=== PATIENT | male | born 1965 | race Caucasian/White ===

== ENCOUNTER 2017-03-31 07:02 | Observation (INO) | payer OTHER ==
[2017-03-31 07:16] VITALS: BMI 31.6
[2017-03-31 08:39] LABS: BASOPHIL 0.2 % (0-2.0); EOSINOPHIL 0.2 % (0-4.5); MCHC 33.8 g/dl (32.0-35.9); MEAN CELL VOLUME 91.8 fl (80-96); MEAN PLT VOLUME 8.1 fl (7.5-11.1); NEUTROPHILS 81.2 % (42.8-82.8); PLATELET COUNT 183 K/MM3 (134-434); RDW 13.9 % (11.9-15.9); WHITE BLOOD COUNT 13.6 K/mm3 (4.0-10.0)
[2017-03-31 08:40] LABS: URINE APPEARANCE SLCLOUDY; URINE BLOOD NEGATIVE (NEGATIVE); URINE COLOR AMBER; URINE GLUCOSE (UA) NEGATIVE (NEGATIVE); URINE KETONE TRACE (NEGATIVE); URINE NITRITE NEGATIVE (NEGATIVE); URINE UROBILINOGEN 4.0 E.U/dl mg/dL (0.2-1.0)
[2017-03-31 08:53] LABS: URINE PROTEIN 1+ (NEGATIVE)
[2017-03-31 08:59] LABS: ALBUMIN 3.8 g/dl (3.4-5.0); ALK PHOS 92 U/L (45-117); ANION GAP 8 (8-16); BILIRUBIN,TOTAL 0.7 mg/dL (0.2-1.0); CALCIUM 8.4 mg/dL (8.5-10.1); CO2 23 mmol/L (21-32); GLUCOSE,RANDOM 146 mg/dL (74-106); SGOT/AST 18 U/L (15-37); SGPT/ALT 36 U/L (12-78); TOT PROT 6.9 g/dl (6.4-8.2)
[2017-03-31 09:02] LABS: URINE MUCUS MANY; URINE RBC 7 /hpf (0-3); URINE WBC 169 /hpf (3-5)
--- NOTE | 2017-03-31 09:11 | PDOC ---
History of Present Illness - General History Source: Patient Exam Limitations: No Limitations - History of Present Illness Initial Comments: 03/31/17 10:00 The patient is a 52 year old male, with no significant past medical history who presents to the emergency department with hematuria and fever. Patient reports recent prostate biopsy last week and has been experiencing fevers and chills since then. Patient has been taking Flagyl and Bactrim following the procedure with no relief of his symptoms. Patient additionally endorses urinary output with frequency and urgency. Patient denies chest pain, headache or dizziness. Patient denies fever, chills, abdominal pain, nausea, vomit, diarrhea or constipation. Patient denies dysuria. Patient denies sick contacts or recent travel. Allergies:NKA Past surgical history: Prostate biopsy Social history: Current someday cigarette smoker PCP: Dr. Danyel Pizarro URO: Rah Pizarro <Sierra Hewitt - Last Filed: 03/31/17 10:02> <Ahsan Delarosa - Last Filed: 03/31/17 16:53> - General Chief Complaint: Urinary Problem Stated Complaint: FEVER, PAIN Time Seen by Provider: 03/31/17 07:38 Past History <Sierra Hewitt - Last Filed: 03/31/17 10:02> - Past Medical History COPD: No Other medical history: NONE - Suicide/Smoking/Psychosocial Hx Smoking History: Current some day smoker Number of Cigarettes Smoked Daily: 3 Information on smoking cessation initiated: No Hx Alcohol Use: Yes (SOCIAL) Drug/Substance Use Hx: No <Ahsan Delarosa - Last Filed: 03/31/17 16:53> - Past Medical History Allergies/Adverse Reactions: Allergies Allergy/AdvReac Type Severity Reaction Status Date / Time No Known Allergies Allergy Verified 03/31/17 07:14 Home Medications: Ambulatory Orders Metronidazole [Flagyl -] 500 mg PO TID 03/31/17 Tamsulosin HCl [Flomax] 0.4 mg PO DAILY 03/31/17 Review of Systems - Review of Systems Able to Perform ROS?: Yes Comments:: 03/31/17 10:00 ROS: A complete review of 10 out of 10 review of systems is taken and is negative apart from what is previously mentioned below and in the HPI. <Sierra Hewitt - Last Filed: 03/31/17 10:02> *Physical Exam - Vital Signs Last Vital Signs Temp Pulse Resp BP Pulse Ox 99.8 F H 96 H 20 118/62 98 03/31/17 08:32 03/31/17 07:10 03/31/17 07:10 03/31/17 07:10 03/31/17 07:10 - Physical Exam Comments: 03/31/17 10:00 Vitals: Triage Vital signs reviewed General Appearance: no acute distress, well nourished well developed, Head: Atraumatic, normocephalic Neck: Supple;No Nuchal rigidity Chest Wall: Nontender Cardiac: Regular rate and rhythm, no murmurs, no rubs, no gallops, Lungs: Clear to auscultation bilateral, good air movement bilaterally, Abdomen: Soft, nondistended, normal bowel sounds, nontender to palpation Extremities: Full range of motion to all extremities, no cyanosis, clubbing, or edema Skin: Warm and dry, no rashes or lesions, no petechiae <Sierra Hewitt - Last Filed: 03/31/17 10:02> - Vital Signs Last Vital Signs Temp Pulse Resp BP Pulse Ox 99.8 F H 96 H 20 118/62 98 03/31/17 08:32 03/31/17 07:10 03/31/17 07:10 03/31/17 07:10 03/31/17 07:10 <Ahsan Delarosa - Last Filed: 03/31/17 16:53> ED Treatment Course - LABORATORY CBC & Chemistry Diagram: 03/31/17 07:50 03/31/17 07:50 - ADDITIONAL ORDERS Additional order review: Laboratory Results 03/31/17 03/31/17 08:18 07:50 Sodium 137 Potassium 3.9 Chloride 106 Carbon Dioxide 23 Anion Gap 8 BUN 11 Creatinine 1.0 Creat Clearance w eGFR > 60 Random Glucose 146 H Calcium 8.4 L Total Bilirubin 0.7 AST 18 ALT 36 Alkaline Phosphatase 92 Total Protein 6.9 Albumin 3.8 Urine Color Rachael Urine Appearance Slcloudy Urine pH 5.0 Ur Specific [place] 1.040 H Urine Protein 1+ H Urine Glucose (UA) Negative Urine Ketones Trace H Urine Blood Negative Urine Nitrite Negative Urine Bilirubin 2.0 Urine Urobilinogen 4.0 e.u/dl Urine WBC (Auto) 169 Urine RBC (Auto) 7 Ur Epithelial Cells Rare Urine Mucus Many 03/31/17 07:50 RBC 4.76 MCV 91.8 MCHC 33.8 RDW 13.9 MPV 8.1 Neutrophils % 81.2 Lymphocytes % 8.3 Monocytes % 10.1 Eosinophils % 0.2 Basophils % 0.2 <Sierra Hewitt - Last Filed: 03/31/17 10:02> - LABORATORY CBC & Chemistry Diagram: 03/31/17 07:50 03/31/17 07:50 - ADDITIONAL ORDERS Additional order review: Laboratory Results 03/31/17 03/31/17 08:18 07:50 Sodium 137 Potassium 3.9 Chloride 106 Carbon Dioxide 23 Anion Gap 8 BUN 11 Creatinine 1.0 Creat Clearance w eGFR > 60 Random Glucose 146 H Calcium 8.4 L Total Bilirubin 0.7 AST 18 ALT 36 Alkaline Phosphatase 92 Total Protein 6.9 Albumin 3.8 Urine Color Rachael Urine Appearance Slcloudy Urine pH 5.0 Ur Specific [place] 1.040 H Urine Protein 1+ H Urine Glucose (UA) Negative Urine Ketones Trace H Urine Blood Negative Urine Nitrite Negative Urine Bilirubin 2.0 Urine Urobilinogen 4.0 e.u/dl Urine WBC (Auto) 169 Urine RBC (Auto) 7 Ur Epithelial Cells Rare Urine Mucus Many 03/31/17 07:50 RBC 4.76 MCV 91.8 MCHC 33.8 RDW 13.9 MPV 8.1 Neutrophils % 81.2 Lymphocytes % 8.3 Monocytes % 10.1 Eosinophils % 0.2 Basophils % 0.2 <Ahsan Delarosa - Last Filed: 03/31/17 16:53> Medical Decision Making - Medical Decision Making 03/31/17 10:01 Danyel Welsh paged via office number Discussed patient's case. Dr. Rah Pizarro paged via phone answering service. Awaiting call back. <Sierra Hewitt - Last Filed: 03/31/17 10:02> - Medical Decision Making 03/31/17 16:31Fever chills, dysuria for one week status post prostate biopsy. Urinalysis grossly positive. Patient is now status post failed outpatient antibiotics metronidazole and Bactrim We'll treat with IV Zosyn cultures ordered we'll observe on medicine service for further management. Urology consult. <Ahsan Delarosa - Last Filed: 03/31/17 16:53> *DC/Admit/Observation/Transfer - Attestations Scribe Attestion: 03/31/17 10:01 Documentation prepared by Sierra Hewitt, acting as medical office assistant instructor for Ahsan Delarosa MD, MD/DO. <Sierra Hewitt - Last Filed: 03/31/17 10:02> - Discharge Dispostion Admit: Yes <Ahsan Delarosa - Last Filed: 03/31/17 16:53> Diagnosis at time of Disposition: UTI (urinary tract infection) Qualifiers: Urinary tract infection type: site unspecified Hematuria presence: without hematuria Qualified Code(s): N39.0 - Urinary tract infection, site not specified
[2017-03-31] MEDS ORDERED: PIPERACILLIN/TAZOB 3.375 GM/50 ML PRE-DOCKED IVPB ONE (09:52)
[2017-03-31] MEDS ORDERED: ACETAMINOPHEN 500 MG TABLET (FP) PO ONE (09:52)
[2017-03-31] MEDS ORDERED: SODIUM CHLORIDE 0.9% 1000 ML INFUS.BAG IV ONE (09:59)
[2017-03-31] MEDS ORDERED: PIPERACILLIN/TAZOB 3.375 GM 3.375 GM/50 ML BAG IVPB ONE (10:03)
[2017-03-31] MEDS ORDERED: ACETAMINOPHEN 325 MG TABLET (FP) ONE (10:04)
--- NOTE | 2017-03-31 12:01 | HP ---
Admitting History and Physical - Admission Chief Complaint: fever hematuriax 1 wk History of Present Illness: had prostate bx x 1 wk agoi History Source: Patient Limitations to Obtaining History: No Limitations - Smoking History Smoking history: Current some day smoker Aproximately how many cigarettes per day: 3 - Alcohol/Substance Use Hx Alcohol Use: Yes (SOCIAL) Home Medications - Allergies Allergies/Adverse Reactions: Allergies Allergy/AdvReac Type Severity Reaction Status Date / Time No Known Allergies Allergy Verified 03/31/17 07:14 - Home Medications Home Medications: Ambulatory Orders Metronidazole [Flagyl -] 500 mg PO TID 03/31/17 Tamsulosin HCl [Flomax] 0.4 mg PO DAILY 03/31/17 Family Disease History - Family Disease History Family History: Unremarkable Review of Systems - Review of Systems Constitutional: reports: Fever Eyes: reports: No Symptoms HENT: reports: No Symptoms Neck: reports: No Symptoms Cardiovascular: reports: No Symptoms Respiratory: reports: No Symptoms Gastrointestinal: reports: No Symptoms Genitourinary: reports: Dysuria Breasts: reports: No Symptoms Reported Musculoskeletal: reports: No Symptoms Integumentary: reports: No Symptoms Neurological: reports: No Symptoms Endocrine: reports: No Symptoms, Unexplained Weight Gain Psychiatric: reports: No Symptoms Physical Examination Vital Signs: Vital Signs Temperature 99.8 F H 03/31/17 08:32 Pulse Rate 96 H 03/31/17 07:10 Respiratory Rate 20 03/31/17 07:10 Blood Pressure 118/62 03/31/17 07:10 O2 Sat by Pulse Oximetry (%) 98 03/31/17 07:10 Constitutional: Yes: Well Nourished, Other (chills) Eyes: Yes: WNL HENT: Yes: WNL Cardiovascular: Yes: WNL Respiratory: Yes: WNL Gastrointestinal: Yes: WNL ...Rectal Exam: Yes: Deferred Renal/: Yes: WNL Breast(s): Yes: WNL Musculoskeletal: Yes: WNL Extremities: Yes: WNL Edema: No Peripheral Pulses WNL: Yes Integumentary: Yes: WNL Neurological: Yes: WNL ...Motor Strength: WNL Psychiatric: Yes: WNL Labs: CBC, BMP 03/31/17 07:50 03/31/17 07:50 Assessment/Plan iv antbx gu id to see pt fluids
[2017-03-31] MEDS: SODIUM CHLORIDE 1,000 ML IV SCH (13:46)
[2017-03-31] MEDS ORDERED: ERTAPENEM SODIUM 1 GM in SODIUM CHLORIDE 50 ML IVPB ONE (14:45)
[2017-03-31] MEDS: ACETAMINOPHEN 325 MG TABLET (FP) PO PRN ×2 (15:11→21:03)
[2017-03-31 15:48] LABS: URINE LEUK ESTERASE TRACE (NEGATIVE)
[2017-03-31] MEDS ORDERED: POLYETHYLENE GLYCOL 3350 119 GM BTL PO PRN (18:41)
[2017-03-31] MEDS ORDERED: POLYETHYLENE GLYCOL 3350 119 GM BTL PO SCH (18:45)
[2017-04-01] MEDS: SODIUM CHLORIDE 1,000 ML IV SCH ×2 (00:41→15:21)
[2017-04-01] MEDS: ACETAMINOPHEN 325 MG TABLET (FP) PO PRN (03:49)
[2017-04-01] MEDS ORDERED: PIPERACIL/TAZOB 3.375 GM 3.375 GM/50 ML PREMIX IVPB SCH (08:30)
[2017-04-01] MEDS ORDERED: PIPERACILLIN/TAZOB 3.375 GM 3.375 GM in DEXTROSE 5%-WATER - 50 ML IVPB ONE (08:30)
[2017-04-01] MEDS ORDERED: PT OWN MED DRAWER 7, Y5N ONE (09:20)
[2017-04-01] MEDS ORDERED: SODIUM PHOSPHATE/NA BIPHOS 133 ML ENEMA RC ONE (09:45)
[2017-04-01 09:54] LABS: BASOPHIL 0.3 % (0-2.0); EOSINOPHIL 1.5 % (0-4.5); MCH 31.2 pg (25.7-33.7); MCHC 33.6 g/dl (32.0-35.9); MEAN CELL VOLUME 92.7 fl (80-96); MEAN PLT VOLUME 8.3 fl (7.5-11.1); NEUTROPHILS 67.1 % (42.8-82.8); PLATELET COUNT 186 K/MM3 (134-434); RDW 13.9 % (11.9-15.9)
--- NOTE | 2017-04-01 09:59 | PN ---
Progress Note (short form) - Note Progress Note: ID Full note dictated Post prostate biopsy almost 2 weeks ago says he was taking antibiotic at home for urinary complaints dysuria Febrile on admission Selected Entries 03/31/17 04/01/17 21:00 07:49 Temperature 101.7 F H 100.8 F H Pulse Rate 72 Respiratory 20 Rate Blood Pressure 110/71 Microbiology 03/31/17 08:18 Urine - Urine Clean Catch Urine Culture - Preliminary Lactose Fermenting Neg Bacilli 03/31/17 07:50 Blood - Peripheral Venous Blood Culture - Preliminary NO GROWTH OBTAINED AFTER 24 HOURS, INCUBATION TO CONTINUE FOR 4 DAYS. 03/31/17 07:50 Blood - Peripheral Venous Blood Culture - Preliminary NO GROWTH OBTAINED AFTER 24 HOURS, INCUBATION TO CONTINUE FOR 4 DAYS. Laboratory Tests 03/31/17 03/31/17 07:50 08:18 WBC 13.6 H Hgb 14.8 Hct 43.7 Plt Count 183 Ur Leukocyte Esterase Trace H Urine WBC (Auto) 169 Urine RBC (Auto) 7 Assessment Post prostate biopsy UTI Treat for possible ESBL Plan ERTEPENEM 1 gram pending final culture sensitivities Eddie POLANCO Problem List - Problems (1) Fever Code(s): R50.9 - FEVER, UNSPECIFIED (2) UTI (urinary tract infection) Code(s): N39.0 - URINARY TRACT INFECTION, SITE NOT SPECIFIED Qualifiers: Urinary tract infection type: site unspecified Hematuria presence: without hematuria Qualified Code(s): N39.0 - Urinary tract infection, site not specified
[2017-04-01] MEDS ORDERED: PANTOPRAZOLE 40 MG TABLET (FP) PO SCH (10:00)
[2017-04-01] MEDS ORDERED: ASPIRIN COATED 81 MG TABLET.EC PO SCH (10:00)
[2017-04-01 10:14] LABS: ANION GAP 7 (8-16); CALCIUM 7.6 mg/dL (8.5-10.1); CO2 24 mmol/L (21-32); CREATININE 0.7 mg/dL (0.7-1.3); GLUCOSE,RANDOM 87 mg/dL (74-106)
[2017-04-01] MEDS ORDERED: ERTAPENEM SODIUM 1 GM in SODIUM CHLORIDE 50 ML IVPB SCH (11:00)
--- NOTE | 2017-04-01 11:04 | PN ---
Progress Note, Physician Chief Complaint: Pt feels better. Had b/m today. Ambulating w/o difficulty. No temp Pt requested to go home. - Current Medication List Current Medications: Active Medications Acetaminophen (Tylenol -) 650 mg PO Q4H PRN PRN Reason: FEVER OR PAIN Last Admin: 04/01/17 03:49 Dose: 650 mg Aspirin (Ecotrin -) 81 mg PO DAILY [facility] Last Admin: 04/01/17 10:17 Dose: 81 mg Sodium Chloride (Normal Saline -) 1,000 mls @ 75 mls/hr IV ASDIR [facility] Last Admin: 04/01/17 00:41 Dose: 75 mls/hr Ertapenem 1 gm/ Sodium (Chloride) 50 mls @ 50 mls/hr IVPB DAILY [facility] PRN Reason: Protocol Pantoprazole Sodium (Protonix -) 40 mg PO DAILY [facility] Last Admin: 04/01/17 10:17 Dose: 40 mg Polyethylene Glycol (Miralax (For Daily Use) -) 17 gm PO DAILY [facility] Last Admin: 03/31/17 18:46 Dose: 17 gm - Objective Vital Signs: Vital Signs Temperature 98.1 F 04/01/17 08:00 Pulse Rate 64 04/01/17 08:00 Respiratory Rate 18 04/01/17 08:00 Blood Pressure 110/68 04/01/17 08:00 O2 Sat by Pulse Oximetry (%) 98 04/01/17 00:44 Constitutional: Yes: Well Nourished Eyes: Yes: WNL HENT: Yes: WNL Neck: Yes: WNL Cardiovascular: Yes: WNL Respiratory: Yes: WNL Gastrointestinal: Yes: WNL ...Rectal Exam: Yes: Deferred Genitourinary: Yes: WNL Musculoskeletal: Yes: WNL Extremities: Yes: WNL Edema: No Peripheral Pulses WNL: Yes Integumentary: Yes: WNL Neurological: Yes: WNL ...Motor Strength: WNL Psychiatric: Yes: WNL Labs: CBC, BMP 04/01/17 09:30 04/01/17 09:30 Assessment/Plan Agree w ID change abx. Awaiting cultures. Check CBC in AM. Urine cultures pending. Questionable discharge in AM. On PO abx.
--- NOTE | 2017-04-01 13:38 | PN ---
Progress Note (short form) - Note Progress Note: Pt. is a 52y/o male who is s/p trus and prostate biopsy,he presents with fever, chills and hematuria.Will admit and rx. with iv antibiotics and awaite blood and urine c/s.
--- NOTE | 2017-04-01 19:50 | CONS ---
DATE OF CONSULTATION: DATE OF DICTATION: 04/01/2017 This is a 52-year-old [place] male who states that he underwent a prostate biopsy almost 2 weeks ago. He is admitted now with chief complaint of fever to nearly 102 with chills, hematuria and dysuria. He notes being on an oral antibiotic but did not know the name and has been experiencing urinary complaints now with fever for which he is admitted. I was contacted last night by the nurse regarding a consultation and made a recommendation to give 1 g of ertapenem. Currently, the patient feels better and his major complaint right now is constipation. He does not have any abdominal pain or back pain noted. He is not diabetic. PAST MEDICAL HISTORY: Includes recent prostate biopsy and BPH. MEDICATIONS: Oral antibiotic (?). SOCIAL HISTORY: Nonsmoker. R[place] a [employer] [place] [facility]. Lives with his . No recent travel. FAMILY HISTORY: Reviewed and noncontributory REVIEW OF SYSTEMS: Respiratory: No cough, shortness of breath. Cardiac: No chest pain, palpitations, syncope, murmur. Gastrointestinal: Positive constipation. No nausea, vomiting, diarrhea, weight loss. Genitourinary: As noted in history of present illness; hematuria, dysuria. PHYSICAL EXAMINATION: General: He was an alert male in no acute distress. Vital Signs: T-Max yesterday 101.7, currently 100.8. Pulse 72. Blood pressure 110/71. Respirations 20. Neck: Supple. No adenopathy. Lungs: Clear to percussion and auscultation. Heart: S1, S2, regular rhythm without audible murmur or gallop. Abdomen: Soft, nontender without hepatosplenomegaly. Extremities: Without clubbing, cyanosis or edema. Back: No CVA tenderness. The white count is 13.6, hemoglobin 14.8, platelets 183. BUN 11, creatinine 1.0. Liver enzymes within normal limits. Urinalysis with 169 WBCs, 7 RBCs and trace leukocyte esterase. Two sets of blood cultures thus far no growth. Urine culture with 30,000 colonies lactose-fermenting gram-negative rods, possible Escherichia coli. ASSESSMENT: A 52-year-old male with benign prostatic hypertrophy status post prostate biopsy approximately 2 weeks ago. Has been receiving oral antibiotics and admitted with fever, hematuria and dysuria consistent with a diagnosis of post-prostate biopsy urinary tract infection. Growing gram-negative rods, possibility of a resistant organism, possible ESBL considered. Will continue him on ertapenem pending final cultures with recommendation to follow regarding treatment for home discharge antibiotic options. OSCAR QUISPE M.D. [id number]
--- NOTE | 2017-04-01 21:07 | CONS ---
DATE OF CONSULTATION: DATE OF DICTATION: 04/01/2017 Patient is a 52-year-old male admitted via the emergency room with history of hematuria, fever and chills. The patient has undergone a transrectal ultrasound as well as a transrectal ultrasound-guided biopsy of the prostate earlier this week. He was on preop antibiotics and was also given intraoperative gentamicin and Ancef. He was sent home on Flagyl 500 mg t.i.d. as well as Bactrim DS 1 p.o. b.i.d. for 10 days. The patient states that several hours after the biopsy, he developed dysuria, frequency. Earlier that evening, he developed a slight fever. Later that night, his temperature went up to 101.4. He also had chills and dysuria. He denies any chest pain or palpitations. He denies any nausea, vomiting, diarrhea or constipation. He does have history of prostatism including frequency, terminal dribbling, hesitancy and feelings of incomplete bladder emptying. He does smoke several cigarettes a day. He denies any ethanolism. He denies any allergies. At home, he was on Bactrim, Flagyl and Flomax. In the emergency room, he was found to have a temperature of 98.8, a pulse of 96, blood pressure of 118/62, O2 saturations at 98%. CBC revealed a white count of 13,600 with a hemoglobin of 14.8, hematocrit 43.7, his platelets were 183. BUN 11, creatinine 0.1. His random glucose was 146. The patient's liver enzymes were all within normal limits. His urinalysis revealed negative blood as well as negative nitrites. The patient is admitted to the hospital for possible urosepsis post transrectal biopsy of the prostate. He has failed a course of Flagyl and Bactrim. Therefore, will commence treatment with IV Zosyn after cultures have been obtained. PHYSICAL EXAMINATION: Vital Signs: Reveal a T-max of 100.8, blood pressure 102/72, pulse 81, respirations 18. General: Presently, the patient is in no acute distress. Abdomen: Soft. There is no CVA tenderness. Genitourinary: Genitalia are atraumatic. Testes are normal in size and consistency. No hernias or hydroceles are elicited. Meatus is adequate. No inguinal lymph nodes are palpable. Perineum is atraumatic. Prostate is 2+, firm and nontender. Extremities: Reveal full range of motion with no cyanosis, clubbing or edema. His repeat white count is 11,000. Repeat BUN is 7, creatinine 0.7. His random glucose is 87. IMPRESSION: Post-biopsy sepsis. Will continue with IV antibiotics. Will recommend obtaining culture results and placing patient on p.o. medications. The patient will be seen in the office next week to get the results of his biopsy. Will follow with you. Ricki [id number]
[2017-04-02 07:04] VITALS: TEMP 98.3
[2017-04-02 07:28] LABS: MCH 31.2 pg (25.7-33.7); MCHC 33.6 g/dl (32.0-35.9); MEAN CELL VOLUME 92.8 fl (80-96); MEAN PLT VOLUME 8.1 fl (7.5-11.1); PLATELET COUNT 191 K/MM3 (134-434); RDW 13.6 % (11.9-15.9)
[2017-04-02 07:45] LABS: ANION GAP 7 (8-16); CALCIUM 7.7 mg/dL (8.5-10.1); CO2 25 mmol/L (21-32); GLUCOSE,RANDOM 92 mg/dL (74-106)
[2017-04-02 07:48] LABS: CREATININE 0.8 mg/dL (0.7-1.3)
--- NOTE | 2017-04-02 09:15 | DS ---
Physical Examination Vital Signs: Vital Signs Temperature 98.3 F 04/02/17 06:00 Pulse Rate 74 04/02/17 06:00 Respiratory Rate 18 04/02/17 06:00 Blood Pressure 117/72 04/02/17 06:00 O2 Sat by Pulse Oximetry (%) 96 04/02/17 00:00 Constitutional: Yes: Well Nourished Eyes: Yes: WNL HENT: Yes: WNL Neck: Yes: WNL Cardiovascular: Yes: WNL Respiratory: Yes: WNL Gastrointestinal: Yes: WNL ...Rectal Exam: Yes: WNL Renal/: Yes: WNL Breast(s): Yes: WNL Musculoskeletal: Yes: WNL Extremities: Yes: WNL Edema: No Peripheral Pulses WNL: Yes Integumentary: Yes: WNL Neurological: Yes: WNL ...Motor Strength: WNL Psychiatric: Yes: WNL Labs: CBC, BMP 04/02/17 06:10 04/02/17 06:10 Discharge Summary Reason For Visit: UTI Current Active Problems Fever (Acute) UTI (urinary tract infection) (Acute) Condition: Good - Instructions Diet, Activity, Other Instructions: cont bactrim flagly flomax as is at home appt w me 1200 noon wed Referrals: Danyel Pizarro MD [Primary Care Provider] - Disposition: HOME - Home Medications Comprehensive Discharge Medication List: Ambulatory Orders Metronidazole [Flagyl -] 500 mg PO TID 03/31/17 Tamsulosin HCl [Flomax] 0.4 mg PO DAILY 03/31/17
[2017-04-02 09:37] VITALS: BP 101/62; PULSE 64
[2017-04-02] MEDS ORDERED: ERTAPENEM SODIUM 1 GM in SODIUM CHLORIDE 50 ML IVPB SCH (10:00)
== END 2017-04-02 10:04 | disposition home or self-care (01) ==
LOC: JER 07:02 → JERBED 10:01 → J5S 12:40
PROVIDERS: ADMIT Family Medicine; ATTEND Family Medicine
DX: N39.0 Urinary tract infection, site not specified (principal)
CPT/HCPCS: 36415; 80048; 80053; 81003; 81015; 85025; 85027; 87040; 87086; 87186; 99282-25; G0378

== ENCOUNTER 2021-09-17 11:35 | Emergency (ER) | payer OTHER ==
[2021-09-17 11:39] VITALS: BP 123/74; PULSE 75; TEMP 97.8; BMI 31.6
[2021-09-17] MEDS ORDERED: KETOROLAC TROMETHAMINE 30 MG/1 ML VIAL IM ONE (12:28)
[2021-09-17] MEDS ORDERED: KETOROLAC TROMETHAMINE 30 MG/1 ML VIAL ONE (12:50)
== END 2021-09-17 13:10 | disposition home or self-care (01) ==
LOC: JER 11:35
PROC: 3E0233Z Introduction of Anti-inflammatory into Muscle, Percutaneous Approach (ICD-10-PCS; principal; 2021-09-17)
DX: B34.9 Viral infection, unspecified (principal)
CPT/HCPCS: 0241U-QW; 99284-25

== ENCOUNTER 2023-10-11 15:33 | Emergency (ER) | payer OTHER ==
[2023-10-11 15:43] VITALS: RESP 18; TEMP 98; BMI 33.4
[2023-10-11 16:29] LABS: PH,URINE 5.5 (5.0-8.0); URINE APPEARANCE CLEAR; URINE BILIRUBIN NEGATIVE (NEGATIVE); URINE COLOR YELLOW; URINE GLUCOSE (UA) NEGATIVE (NEGATIVE); URINE KETONE NEGATIVE (NEGATIVE); URINE LEUK ESTERASE NEGATIVE (NEGATIVE); URINE NITRITE NEGATIVE (NEGATIVE); URINE PROTEIN NEGATIVE (NEGATIVE)
[2023-10-11] MEDS: SODIUM CHLORIDE 1,000 ML IV STA (16:32)
[2023-10-11 16:38] LABS: BASO % 0.8 % (0-2.0); EOS % 3.6 % (0-4.5); HEMATOCRIT 47.7 % (35.4-49); HEMOGLOBIN 16.2 GM/dL (11.7-16.9); LYMPH % 30.6 % (8-40); MCH 31.1 pg (25.7-33.7); MEAN CELL VOLUME 91.4 fl (80-96); MEAN PLT VOLUME 8.4 fl (7.5-11.1); MONO % 7.4 % (3.8-10.2); NEUT % 57.6 % (42.8-82.8); PLATELET COUNT 174 10^3/uL (134-434); RBC 5.21 M/mm3 (4.00-5.60); RDW 14.3 % (11.9-15.9)
[2023-10-11 17:01] LABS: POTASSIUM 3.9 mmol/L (3.5-5.1)
[2023-10-11 17:03] LABS: CALCIUM 8.5 mg/dL (8.5-10.1)
[2023-10-11 17:04] LABS: BLOOD UREA NITROGEN 18.2 mg/dL (7-18)
[2023-10-11 17:07] LABS: CREATININE 0.8 mg/dL (0.55-1.3)
[2023-10-11 17:08] LABS: BILIRUBIN,TOTAL 0.5 mg/dL (0.2-1); TOT PROT 7.3 g/dl (6.4-8.2)
[2023-10-11] MEDS ORDERED: ACETAMINOPHEN INJECTION 100 ML IVPB ONE (18:49)
[2023-10-11] MEDS: ACETAMINOPHEN 1000 MG/100 ML BAG IVPB ONE (19:09)
[2023-10-11] MEDS ORDERED: POLYETHYLENE GLYCOL (HEALTHYLAX) 3350 17 GM PACKET ONE (21:22)
[2023-10-11] MEDS: POLYETHYLENE GLYCOL (HEALTHYLAX) 3350 17 GM PACKET PO ONE (21:27)
[2023-10-11 21:36] VITALS: BP 132/70; PULSE 75
== END 2023-10-11 21:35 | disposition home or self-care (01) ==
LOC: JER 15:33
PROC: 3E033NZ Introduction of Analgesics, Hypnotics, Sedatives into Peripheral Vein, Percutaneous Approach (ICD-10-PCS; principal; 2023-10-11)
PROC: 3E0337Z Introduction of Electrolytic and Water Balance Substance into Peripheral Vein, Percutaneous Approach (ICD-10-PCS; 2023-10-11)
DX: R10.31 Right lower quadrant pain (principal); R50.9 Fever, unspecified
CPT/HCPCS: 36415; 74177-TC; 76705-TC; 80053; 81003; 83690; 85025; 87086; 99285-25; J0131; Q9967

== ENCOUNTER 2023-10-12 06:34 | Emergency (ER) | payer OTHER ==
[2023-10-12 06:41] VITALS: BMI 33.3
[2023-10-12] MEDS ORDERED: ACETAMINOPHEN INJECTION 100 ML IVPB ONE (08:04)
[2023-10-12] MEDS: SODIUM CHLORIDE 0.9% 500 ML INFUS.BAG IV ONE (08:27)
[2023-10-12] MEDS: ACETAMINOPHEN 1000 MG/100 ML BAG IVPB ONE (08:27)
[2023-10-12 08:35] LABS: BASO % 0.4 % (0-2.0); EOS % 1.2 % (0-4.5); HEMATOCRIT 49.2 % (35.4-49); LYMPH % 13.1 % (8-40); MCH 31.8 pg (25.7-33.7); MCHC 34.7 g/dl (32.0-35.9); MEAN CELL VOLUME 91.6 fl (80-96); MEAN PLT VOLUME 8.4 fl (7.5-11.1); MONO % 6.1 % (3.8-10.2); NEUT % 79.2 % (42.8-82.8); PLATELET COUNT 181 10^3/uL (134-434); RBC 5.37 M/mm3 (4.00-5.60); RDW 14.2 % (11.9-15.9); WHITE BLOOD COUNT 8.8 K/mm3 (4.0-10.0)
[2023-10-12 08:46] LABS: POTASSIUM 3.8 mmol/L (3.5-5.1)
[2023-10-12 08:48] LABS: CALCIUM 9.1 mg/dL (8.5-10.1)
[2023-10-12 08:49] LABS: ALBUMIN 4.6 g/dl (3.4-5.0)
[2023-10-12 08:52] LABS: CREATININE 0.8 mg/dL (0.55-1.3)
[2023-10-12 08:53] LABS: BILIRUBIN,TOTAL 0.9 mg/dL (0.2-1); TOT PROT 8.1 g/dl (6.4-8.2)
[2023-10-12] MEDS ORDERED: MAGNESIUM HYDROX 2400MG/30ML ORAL SUSPENSION 30 ML CUP ONE (11:47)
[2023-10-12] MEDS ORDERED: KETOROLAC TROMETHAMINE 15 MG/ML VIAL ONE (11:47)
[2023-10-12 11:51] VITALS: TEMP 98
[2023-10-12] MEDS: KETOROLAC TROMETHAMINE 15 MG/ML VIAL IVPUSH ONE (12:26)
[2023-10-12] MEDS: MAGNESIUM HYDROX 2400MG/30ML ORAL SUSPENSION 30 ML CUP PO ONE (12:27)
[2023-10-12] MEDS: PEG 3350/NA SULF BICARB CL/KCL 4000 ML SOLN.RECON PO ONE (12:27)
[2023-10-12] MEDS: SODIUM PHOSPHATE/NA BIPHOS 133 ML ENEMA RC ONE (12:27)
[2023-10-12 14:26] VITALS: BP 106/83; PULSE 60; RESP 18
== END 2023-10-12 16:22 | disposition home or self-care (01) ==
LOC: JER 06:34
PROC: 3E033NZ Introduction of Analgesics, Hypnotics, Sedatives into Peripheral Vein, Percutaneous Approach (ICD-10-PCS; principal; 2023-10-12)
PROC: 3E0333Z Introduction of Anti-inflammatory into Peripheral Vein, Percutaneous Approach (ICD-10-PCS; 2023-10-12)
DX: R10.84 Generalized abdominal pain (principal); K59.00 Constipation, unspecified
CPT/HCPCS: 36415; 80053; 83605; 85025; 99284-25; J0131

== ENCOUNTER 2024-07-17 05:55 | Day surgery (SDC) | payer OTHER ==
[2024-07-14 13:55] VITALS: BMI 31.6
[2024-07-17] MEDS ORDERED: DEXAMETHASONE SOD PHOSPHATE 10 MG/1 ML VIAL ONE (07:58)
[2024-07-17] MEDS ORDERED: LIDOCAINE HCL/PF 1% SDV 5ML VIAL ONE (07:58)
[2024-07-17 12:21] VITALS: RESP 16
[2024-07-17 14:44] VITALS: BP 107/77; PULSE 56; TEMP 97.7
== END 2024-07-17 14:50 | disposition home or self-care (01) ==
LOC: JASU-SURG 05:55
PROVIDERS: ATTEND Pain Medicine Pain Medicine
PROC: 3E0R33Z Introduction of Anti-inflammatory into Spinal Canal, Percutaneous Approach (ICD-10-PCS; principal; 2024-07-17 13:30)
DX: M54.12 Radiculopathy, cervical region (principal)
CPT/HCPCS: 76000-TC-FY; J1100